=== PATIENT | female | born 1960 | race Caucasian/White ===

== ENCOUNTER 2021-05-23 17:21 | Emergency (ER) | payer MEDICARE, MEDICAID ==
[~2021-05-23] VITALS: Ht 157.5 cm; Wt 90.7 kg
[2021-05-23] MEDS ORDERED: COZAAR 25 MG TA25 M1 PO (17:31)
[2021-05-23] MEDS ORDERED: COREG25 M1 PO (17:31)
[2021-05-23] MEDS ORDERED: LASIX 40 MG TAB40 MG PO (17:32)
[2021-05-23] MEDS ORDERED: EFFER-K 10 MEQ10 ME1 PO (17:32)
[2021-05-23 17:57] VITALS: BP 111/67
== END 2021-05-23 17:58 | disposition home or self-care (01) ==
LOC: M.ERS 17:21
DX: F41.9 Anxiety disorder, unspecified (principal); M79.7 Fibromyalgia; I50.9 Heart failure, unspecified; Z79.899 Other long term (current) drug therapy; Z88.1 Allergy status to other antibiotic agents